=== PATIENT | female | born 1995 ===

== ENCOUNTER 2018-01-31 10:14 | Emergency (ER) | payer SELFPAY ==
[2018-01-31 10:32] VITALS: BP 111/66
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
== END 2018-01-31 11:50 | disposition home or self-care (01) ==
LOC: UCEAST 10:14
DX: S29.012A Strain of muscle and tendon of back wall of thorax, initial encounter (principal); S39.012A Strain of muscle, fascia and tendon of lower back, initial encounter; V49.40XA Driver injured in collision with unspecified motor vehicles in traffic accident, initial encounter; Y93.89 Activity, other specified; Y92.410 Unspecified street and highway as the place of occurrence of the external cause; M41.9 Scoliosis, unspecified
CPT/HCPCS: 72100; 99211; G0463

== ENCOUNTER 2018-05-02 08:32 | Emergency (ER) | payer OTHER ==
[2018-05-02 08:42] VITALS: BP 129/75
[2018-05-02] MEDS ORDERED: Cephalexin CAP* 500 MG PO ONE (08:54)
[2018-05-02] MEDS ORDERED: diPHENhydraMINE PO* 50 MG PO ONE (08:54)
--- NOTE | 2018-05-02 09:52 | ED ---
Young Mcgowan Jade, scribed for Jeffry Rush MD on 05/02/18 at 0858 . Skin Complaint - HPI Summary HPI Summary: Patient is a 23 y/o female who presents to [facility] c/o rash s/p multiple insect bites. She states the rash started 6 days ago, and is on her arms, legs, and buttocks area. Bites on her hand and right thigh have surrounding erythema, and all bites are very itchy. - History of Current Complaint Stated Complaint: SKIN ISSUE Hx Obtained From: Patient Hx Last Menstrual Period: month ago Onset/Duration: Started Days Ago - 6, Still Present Timing: Constant Current Severity: None Pain Intensity: 0 Pain Scale Used: 0-10 Numeric Skin Location: Arm, Leg, Other: - Buttocks area Character: Pruritus, Redness Aggravating Symptom(s): Nothing Alleviating Symptom(s): Nothing Associated Signs & Symptoms: Negative Related History: Insect Bite/Sting - Multiple bites - Allergy/Home Medications Allergies/Adverse Reactions: Allergies Allergy/AdvReac Type Severity Reaction Status Date / Time No Known Allergies Allergy Verified 05/02/18 08:42 PMH/Surg Hx/FS Hx/Imm Hx Endocrine/Hematology History: Denies: Hx Diabetes Cardiovascular History: Denies: Hx Hypercholesterolemia, Hx Hypertension Infectious Disease History: No Infectious Disease History: Denies: Traveled Outside the [place] in Last 30 Days - Family History Known Family History: Negative: Cardiac Disease, Diabetes - Social History Alcohol Use: Rare Substance Use Type: Reports: None Smoking Status (MU): Never Smoked Tobacco Review of Systems Negative: Fever Positive: Rash, Other - Itchiness All Other Systems Reviewed And Are Negative: Yes Physical Exam - Summary Physical Exam Summary: VITAL SIGNS: Reviewed. GENERAL: Patient is a well-developed and nourished FEMALE who is lying comfortable in the stretcher. Patient is not in any acute respiratory distress. HEAD AND FACE: Normocephalic EYES: PERRLA, EOMI x 2. EARS: Hearing grossly intact. MOUTH: Oropharynx within normal limits. NECK: Supple, trachea is midline, no adenopathy, no JVD, no carotid bruit. CHEST: Symmetric, no tenderness at palpation LUNGS: Clear to auscultation bilaterally. No wheezing or crackles. CVS: Regular rate and rhythm, S1 and S2 present, no murmurs or gallops appreciated. ABDOMEN: Soft, non-tender. Bowel sounds are normal. No abdominal abnormal pulsations. EXTREMITIES: Full ROM in all major joints, no edema, no cyanosis or clubbing. NEURO: Alert and oriented x 3. No acute neurological deficits. Speech is normal and follows commands. SKIN: Multiple insect bites with surrounding erythema. Increased warmth. Slight tenderness to palpation. Triage Information Reviewed: Yes Vital Signs On Initial Exam: Initial Vitals Temp Pulse Resp BP Pulse Ox 97.6 F 65 18 129/75 100 05/02/18 08:35 05/02/18 08:35 05/02/18 08:35 05/02/18 08:35 05/02/18 08:35 Vital Signs Reviewed: Yes Diagnostics - Vital Signs Vital Signs Temp Pulse Resp BP Pulse Ox 05/02/18 08:35 97.6 F 65 18 129/75 100 - Laboratory Lab Statement: Any lab studies that have been ordered have been reviewed, and results considered in the medical decision making process. Course/Dx - Course Assessment/Plan: Patient presents with muscular bites which have secondary infected and now forming cellulitis. Therefore the patient was given Keflex and Benadryl for itching. Patient will be discharged home with a prescription for Keflex and Benadryl in the follow with PCP in the next couple days. She was recommended to return to the urgent care or go to the PCP if the symptoms worsen. Patient understands and agrees - Diagnoses Provider Diagnoses: Insect bites, Cellulitis Discharge - Sign-Out/Discharge Documenting (check all that apply): Discharge/Admit/Transfer - Discharge Plan Condition: Stable Disposition: HOME Prescriptions: Cephalexin CAP* [Keflex CAP*] 500 mg PO TID #21 cap diPHENhydraMINE PO* [Benadryl PO 25 MG TAB*] 25 mg PO TID PRN #30 tab PRN Reason: Itching Patient Education Materials: Cellulitis (ED), Insect Bite or Sting (ED) Referrals: Jeffry Inman MD [Primary Care Provider] - Additional Instructions: Take medications as instructed Increase your fluid intake Return to the if symptoms worsen - Billing Disposition and Condition Condition: STABLE Disposition: Home The documentation as recorded by the Young mcclellan Jade accurately reflects the service I personally performed and the decisions made by , Jeffry Rush MD.
== END 2018-05-02 09:04 | disposition home or self-care (01) ==
LOC: UCEAST 08:32
DX: S40.862A Insect bite (nonvenomous) of left upper arm, initial encounter (principal); S40.861A Insect bite (nonvenomous) of right upper arm, initial encounter; S80.862A Insect bite (nonvenomous), left lower leg, initial encounter; S80.861A Insect bite (nonvenomous), right lower leg, initial encounter; S30.860A Insect bite (nonvenomous) of lower back and pelvis, initial encounter; S70.361A Insect bite (nonvenomous), right thigh, initial encounter; L03.116 Cellulitis of left lower limb; L03.115 Cellulitis of right lower limb; L03.114 Cellulitis of left upper limb; L03.113 Cellulitis of right upper limb; L03.317 Cellulitis of buttock; W57.XXXA Bitten or stung by nonvenomous insect and other nonvenomous arthropods, initial encounter; Y92.9 Unspecified place or not applicable
CPT/HCPCS: 99212; A9270-GY; G0463

== ENCOUNTER 2018-05-04 08:32 | Emergency (ER) | payer OTHER ==
[2018-05-04 09:06] VITALS: BP 108/70
--- NOTE | 2018-05-04 09:42 | UC ---
Skin Complaint HPI - HPI Summary HPI Summary: 23 y/o female presents to the urgent care c/o a new rash in her RT upper arm w/ swelling and some blisters since Friday05/02/2018. Pt states was seen Friday morning here at for a "bug bite" in couple spots and was put on Keflex. Pt states that during her visit she scratched underneath R arm, and later in the afternoon her upper arm developed the rash w / swelling. Pt was Rx Keflex and the lower legs rash it is resolving. But the one in her RT arm is worsen today and now w/ a discrete blister. Pt was yesterday at [facility], but she doen't recalled being exposed to poison melany or being bit by and insect. Pt states rash itches a lot. Pt denies fever, SOB, hoarseness, throat tightening, chest pain, abdominal pain, N/V/D. - History of Current Complaint [facility] Time Seen by Provider: 05/04/18 09:31 Stated Complaint: RASH Hx Obtained From: Patient Hx Last Menstrual Period: 04/13/18 Onset/Duration: Sudden Onset, Lasting Days - 2 days, Still Present, Worse Since - today Skin Exposure Onset/Duration: Days Ago - 2 days Timing: Constant Onset Severity: Mild Current Severity: Moderate Pain Intensity: 4 Pain Scale Used: 0-10 Numeric Location: Discrete - RT upper arm Character: Swelling, Pruritus, Redness, Raised, Painful Aggravating Factor(s): Touch Alleviating Factor(s): Other - Keflex PO Associated Signs & Symptoms: Positive: Rash, Drainage, Tenderness. Negative: Difficulty Breathing, Fever, Chills, Hoarseness, Throat Tightening Related History: Possible Reaction to: Insect - Allergy/Home Medications Allergies/Adverse Reactions: Allergies Allergy/AdvReac Type Severity Reaction Status Date / Time No Known Allergies Allergy Verified 05/04/18 08:58 Review of Systems Constitutional: Negative Skin: Rash - Rt upper arm red rash, w/ swelling and pain Eyes: Negative ENT: Negative Respiratory: Negative Cardiovascular: Negative Gastrointestinal: Negative Genitourinary: Negative Motor: Negative Neurovascular: Negative Musculoskeletal: Negative Neurological: Negative Psychological: Negative Is Patient Immunocompromised?: No All Other Systems Reviewed And Are Negative: Yes PMH/Surg Hx/FS Hx/Imm Hx Previously Healthy: Yes - Pt denies PMHX - Surgical History Surgical History: None - Family History Known Family History: Positive: None - Pt denies FMHX Negative: Cardiac Disease, Diabetes - Social History Occupation: Employed Full-time Lives: With Family Alcohol Use: None Substance Use Type: None Smoking Status (MU): Never Smoked Tobacco Physical Exam - Summary Physical Exam Summary: Vital Signs Reviewed: Yes General: well developed, well nourished female sitting in the examining table w/ o any apparent distress. Eyes: Positive: Conjunctiva Clear - PERRLA, EOMI ENT: Positive: Normal ENT inspection, Hearing grossly normal, Pharynx normal, TMs normal Neck: Positive: Supple, Nontender, No Lymphadenopathy Respiratory: Positive: Chest nontender, Lungs clear, Normal breath sounds Cardiovascular: Positive: RRR, No Murmur, Pulses Normal Abdomen Description: Positive: Nontender, No Organomegaly, Soft. Negative: CVA Tenderness (R), CVA Tenderness (L) Bowel Sounds: Positive: Present Musculoskeletal: Positive: Strength Intact, ROM Intact, No Edema Neurological Exam: Normal Psychological Exam: Normal Skin: Positive: rashes - RT ventral side of Rt forearm w/ erythematous patch w/ indistinct borders, warm to touch, swelling and tender to palpation, about 5.0cm x 4.0cm in size there 2 darker erythematous central areas w/ induration, and a discrete vesicle Triage Information Reviewed: Yes Vital Signs: Initial Vital Signs Temp 97.9 F 05/04/18 08:59 Pulse 60 05/04/18 08:59 Resp 16 05/04/18 08:59 BP 108/70 05/04/18 08:59 Pulse Ox 100 05/04/18 08:59 Course/Dx - Course Course Of Treatment: 23 y/o female presents to the urgent care c/o a new rash in her RT upper arm w/ swelling and some blisters since Friday05/02/2018. Pt states was seen Friday morning here at for a "bug bite" in couple spots and was put on Keflex. Pt states that during her visit she scratched underneath R arm, and later in the afternoon her upper arm developed the rash w / swelling. Pt was Rx Keflex and the lower legs rash it is resolving. But the one in her RT arm is worsen today and now w/ a discrete blister. Pt was yesterday at [facility], but she doen't recalled being exposed to poison melany or being bit by and insect. Pt states rash itches a lot. Pt denies fever, SOB, hoarseness, throat tightening, chest pain, abdominal pain, N/V/D. Hx obtained. Pt w/ a possible allergic reaction to possible insect bite since there are 2 indurated cental areas . Pt Rx Prednisone PO and Triamcinolone topical cream and advised to continue taking Keflex PO. Also recommeded to f/u with her PCP or /dr Cornejo if not improvement of symptom for further treatment. Pt advised if rash worsens despite medications and she develops SOB to immediately go to the ER for further treatment. Pt understood and agreed with plan of care. - Differential Diagnoses - Skin Complaint Differential Diagnoses: Abscess, Allergic Reaction, Cellulitis, Contact Dermatitis, Local Allergic Reaction, Poison [place], Poison [place], Tick Born Illness, Urticaria - Diagnoses Provider Diagnoses: 1- Acute rash on RT upper arm s/p insect bite Discharge - Sign-Out/Discharge Documenting (check all that apply): Patient Departure - D/C home - Discharge Plan Condition: Stable Disposition: HOME Prescriptions: predniSONE TAB* [Deltasone 20 MG TAB*] 20 mg PO DAILY #11 tab Triamcinolone 0.1% CREAM(NF) [Kenalog 0.1% Cream (NF)] 1 applic TOPICAL BID #1 applic Patient Education Materials: Acute Rash (ED) Forms: *Work Release Referrals: Jeffry Inman MD [Primary Care Provider] - 3 Days Carlota Cornejo [Medical Doctor] - If Needed Additional Instructions: 1-Please Start taking Prednisone PO taper dose as directed 2- Continue taking Benadryl PO and Keflex as directed. Apply Triamcinolone topical cream on your RT upper arm rash. 3-If symptoms do not improve or worsen please f/u with your PCP or [facility]ie [facility] Dr Cornejo in 3 days for further evaluation and treatment. - Billing Disposition and Condition Condition: STABLE Disposition: Home
== END 2018-05-04 10:04 | disposition home or self-care (01) ==
LOC: UCEAST 08:32
DX: R21 Rash and other nonspecific skin eruption (principal); S40.861D Insect bite (nonvenomous) of right upper arm, subsequent encounter; W57.XXXD Bitten or stung by nonvenomous insect and other nonvenomous arthropods, subsequent encounter
CPT/HCPCS: 99212; G0463